=== PATIENT | female | born 1985 | race Caucasian/White ===

== ENCOUNTER 2017-05-15 11:55 | Emergency (ER) | payer MEDICAID ==
[~2017-05-15] VITALS: Ht 160 cm; Wt 79.9 kg
[2017-05-15 12:06] VITALS: BP 117/71
--- NOTE | 2017-05-15 13:01 | NUR ---
Patient ambulated to OF2 with family. RN evaluating patient.
[2017-05-15 13:21] LABS: APPEARANCE,URINE CLEAR (CLEAR); BILIRUBIN,URINE NEGATIVE (NEGATIVE); BLOOD, URINE NEGATIVE (NEGATIVE); COLOR,URINE YELLOW (YELLOW); LEUKOCYTE ESTERASE ,URINE NEGATIVE (NEGATIVE); NITRITE, URINE NEGATIVE (NEGATIVE); UGLUCOSE NEGATIVE (NEGATIVE)
--- NOTE | 2017-05-15 13:30 | NUR ---
31/F c/o painful urination x1 day accompaned with frequency and urgency. Pt also noted with yellow vaginal discharge with vaginal itching. AOX4, ambulatory with steady gait. Denies N/V/D. Denies fever or chills. VSS.
--- NOTE | 2017-05-15 14:23 | NUR ---
PT MOVED TO BED 12.
--- NOTE | 2017-05-15 14:45 | NUR ---
Pelvic exam performed by Dr. Hernandez. Patient tolerated procedure well. Patient assisted to position of comfort after examination.
--- NOTE | 2017-05-15 15:16 | NUR ---
Ultrasound at bedside.
--- NOTE | 2017-05-15 15:43 | NUR ---
Patient appears to be resting comfortably in bed. Pain medication offered. Pt states "I'm okay right now." Vital signs stable. Respirations even and unlabored. Friend at bedside. Comfort needs met. Will continue to monitor.
[2017-05-15] MEDS ORDERED: cefTRIAXone 250 MG in LIDOCAINE 1% ***ER ONLY *** 0.9 ML IM ONE (15:50)
[2017-05-15] MEDS ORDERED: metroNIDAZOLE 250 MG TAB PO ONE (15:50)
[2017-05-15] MEDS ORDERED: AZITHROMYCIN 250 MG TAB PO ONE (15:50)
[2017-05-15 16:20] VITALS: BP 121/70
--- NOTE | 2017-05-15 16:20 | NUR ---
Patient discharged with v/s stable. Written and verbal after care instructions given and explained. Patient alert, oriented and verbalized understanding of instructions. Ambulatory with steady gait. All questions addressed prior to discharge. ID band removed. Patient advised to follow up with PMD. Rx of Cipro 500mg given. Patient educated on indication of medication including possible reaction and side effects. Opportunity to ask questions provided and answered.
[2017-05-17 06:16] LABS: CHLAMYDIA TRACHOMATIS AMP DNA Negative (Negative)
== END 2017-05-15 16:20 | disposition home or self-care (01) ==
LOC: MED 11:55
DX: N89.8 Other specified noninflammatory disorders of vagina (principal); Z88.6 Allergy status to analgesic agent
CPT/HCPCS: 36415; 76856; 81003; 81025; 87210; 87491; 96372; 99285; J0696; J2001; Q0092